=== PATIENT | male | born 1960 | race Caucasian/White ===

== ENCOUNTER → 2022-02-28 | Outpatient (CLI) | payer OTHER ==
[~2022-02-28] MED LIST: AMLO-258 PO; SODI10PO2 PO
[2022-02-28 11:03] LABS: BASOPHILS % (AUTO) 1.4 % (0.0-2.0); EOSINOPHILS % (AUTO) 14.4 % (1.0-6.0); HEMATOCRIT 36.2 % (41-53); HEMOGLOBIN 12.1 g/dL (13.5-17.5); LYMPHOCYTES % (AUTO) 16.8 % (22.0-44.0); MEAN CORPUSCULAR HEMOGLOBIN 26.8 pg (26.0-34.0); MEAN CORPUSCULAR HGB CONC 33.5 G/dL (31.0-37.0); MEAN CORPUSCULAR VOLUME 80 fL (80-100); MONOCYTES # (AUTO) 0.5 K/uL (0.1-1.0); MONOCYTES % (AUTO) 8.7 % (2.0-9.0); NEUTROPHILS # (AUTO) 3.6 K/uL (1.8-7.7); NEUTROPHILS % (AUTO) 58.7 % (40.0-70.0); PLATELET COUNT (AUTO) 348 K/uL (150-450); RED BLOOD CELL COUNT(AUTO) 4.52 MIL/uL (4.50-5.90)
[2022-02-28 11:23] LABS: APPEARANCE,URINE CLEAR (CLEAR); BILIRUBIN,URINE NEGATIVE (NEGATIVE); GLUCOSE, URINE (UA) 300-500 mg/dL (NEGATIVE); KETONES,URINE NEGATIVE (NEGATIVE); LEUKOCYTE ESTERASE ,URINE NEGATIVE (NEGATIVE); NITRATE,URINE NEGATIVE (NEGATIVE); OCCULT BLOOD,URINE SMALL (NEGATIVE); PROTEIN,URINE >600,SEE CONFIRM mg/dL (NEGATIVE); SPECIFIC GRAVITIY, URINE 1.014 (1.003-1.030); UROBILINOGEN,URINE <=1.0 mg/dL (<=1.0)
[2022-02-28 11:31] LABS: SULFOSALICYLIC ACID,URINE 3+ (Negative)
[2022-02-28 11:32] LABS: BACTERIA,URINE None Seen /HPF (None Seen); WBC,URINE None Seen /HPF (0-5)
[2022-02-28 11:49] LABS: ALBUMIN 3.1 g/dL (3.4-5.0); CALCIUM, TOTAL 8.6 mg/dL (8.8-10.5); CREATININE 7.06 mg/dL (0.60-1.30); MAGNESIUM 2.4 mg/dL (1.80-2.40); PHOSPHORUS 7.4 mg/dL (2.5-4.9); POTASSIUM 4.7 mmol/L (3.5-5.1)
[2022-02-28 12:06] LABS: CREATININE,URINE RANDOM 108.4 mg/dL (30.0-125.0)
[2022-02-28 13:41] LABS: PROTEIN,URINE RANDOM 689 mg/dL (0-11.9)
== END | disposition home or self-care (01) ==
LOC: LABMN 10:30
PROVIDERS: ATTEND Internal Medicine Nephrology
DX: N18.5 Chronic kidney disease, stage 5 (principal); E11.22 Type 2 diabetes mellitus with diabetic chronic kidney disease
CPT/HCPCS: 80069; 81001; 81002; 82043; 82570; 83735; 84156; 85025

== ENCOUNTER → 2022-03-27 | Outpatient (CLI) | payer OTHER ==
[2022-03-27 11:10] LABS: BASOPHILS % (AUTO) 1.2 % (0.0-2.0); HEMATOCRIT 32.5 % (41-53); HEMOGLOBIN 10.8 g/dL (13.5-17.5); LYMPHOCYTES # (AUTO) 0.8 K/uL (1.0-4.8); LYMPHOCYTES % (AUTO) 10.7 % (22.0-44.0); MEAN CORPUSCULAR HEMOGLOBIN 26.6 pg (26.0-34.0); MEAN CORPUSCULAR HGB CONC 33.4 G/dL (31.0-37.0); MEAN CORPUSCULAR VOLUME 80 fL (80-100); MONOCYTES # (AUTO) 0.6 K/uL (0.1-1.0); MONOCYTES % (AUTO) 8.6 % (2.0-9.0); NEUTROPHILS # (AUTO) 3.7 K/uL (1.8-7.7); NEUTROPHILS % (AUTO) 49.8 % (40.0-70.0); PLATELET COUNT (AUTO) 325 K/uL (150-450); RED BLOOD CELL COUNT(AUTO) 4.07 MIL/uL (4.50-5.90); RED CELL DISTRIBUTION WIDTH 15.1 % (11.5-14.5)
[2022-03-27 11:11] LABS: APPEARANCE,URINE CLEAR (CLEAR); BILIRUBIN,URINE NEGATIVE (NEGATIVE); GLUCOSE, URINE (UA) 70-100 mg/dL (NEGATIVE); KETONES,URINE NEGATIVE (NEGATIVE); LEUKOCYTE ESTERASE ,URINE NEGATIVE (NEGATIVE); NITRATE,URINE NEGATIVE (NEGATIVE); OCCULT BLOOD,URINE SMALL (NEGATIVE); PROTEIN,URINE 300-600,SEE CONFIRM mg/dL (NEGATIVE); SPECIFIC GRAVITIY, URINE 1.012 (1.003-1.030); UROBILINOGEN,URINE <=1.0 mg/dL (<=1.0)
[2022-03-27 11:20] LABS: EOSINOPHILS % (AUTO) 29.7 % (1.0-6.0)
[2022-03-27 11:24] LABS: BACTERIA,URINE None Seen /HPF (None Seen); RBC,URINE 0-2 /HPF (0-2); SQUAMOUS EPITHELIAL CELL,UR Few /LPF (None Seen); SULFOSALICYLIC ACID,URINE 3+ (Negative); WBC,URINE None Seen /HPF (0-5)
[2022-03-27 11:41] LABS: ALBUMIN 3.3 g/dL (3.4-5.0); CALCIUM, TOTAL 7.8 mg/dL (8.8-10.5); CREATININE 9.77 mg/dL (0.60-1.30); MAGNESIUM 2.9 mg/dL (1.80-2.40); PHOSPHORUS 8.4 mg/dL (2.5-4.9)
== END | disposition home or self-care (01) ==
LOC: LABMN 10:44
PROVIDERS: ATTEND Internal Medicine Nephrology
DX: E11.22 Type 2 diabetes mellitus with diabetic chronic kidney disease (principal); N18.5 Chronic kidney disease, stage 5; E87.5 Hyperkalemia; R80.1 Persistent proteinuria, unspecified
CPT/HCPCS: 80069; 81001; 81002; 82043; 82570; 83735; 85025

== ENCOUNTER 2023-09-29 12:21 | Emergency (ER) | payer OTHER ==
[~2023-09-29] VITALS: Ht 165.1 cm; Wt 59.0 kg
[~2023-09-29 12:21] MED LIST changes: +AMOX1TAB16 PO; +ASPI-1444 PO; +ATOR40TA71 PO; +CLOP75TA60 PO; +DOCU-412 PO; +FOLI0.8T2 PO; +FURO80TA3 PO; +HYDR25TA84 PO; +LINA5TAB PO; +METO25 PO; -SODI10PO2 PO; +SODI5POW3 PO; +SUCR500T PO
[2023-09-29 12:29] VITALS: BP 136/77; PULSE 75; RESP 16; TEMP 98.3
== END 2023-09-29 23:22 | disposition home or self-care (01) ==
LOC: EMS 22:08
DX: S90.932D Unspecified superficial injury of left great toe, subsequent encounter (principal); E11.22 Type 2 diabetes mellitus with diabetic chronic kidney disease; I12.0 Hypertensive chronic kidney disease with stage 5 chronic kidney disease or end stage renal disease; N18.6 End stage renal disease; Z99.2 Dependence on renal dialysis; X58.XXXA Exposure to other specified factors, initial encounter; Y93.89 Activity, other specified; Y92.89 Other specified places as the place of occurrence of the external cause; Y99.8 Other external cause status
CPT/HCPCS: 82962; 99282

== ENCOUNTER 2024-05-02 21:11 | Inpatient (IN) | payer OTHER ==
[~2024-05-02] VITALS: Ht 162.6 cm; Wt 52.0 kg
[~2024-05-02 21:11] MED LIST changes: +AMOX-457 PO; -AMOX1TAB16 PO; -FOLI0.8T2 PO; +FOLI0.8T54 PO
[2024-05-02 22:09] LABS: HEMATOCRIT 31.8 % (41-53); HEMOGLOBIN 10.4 g/dL (13.5-17.5); LYMPHOCYTES # (AUTO) 0.5 K/uL (1.0-4.8); LYMPHOCYTES % (AUTO) 3.4 % (22.0-44.0); MEAN CORPUSCULAR HEMOGLOBIN 30.9 pg (26.0-34.0); MEAN CORPUSCULAR HGB CONC 32.6 G/dL (31.0-37.0); MEAN CORPUSCULAR VOLUME 95 fL (80-100); MONOCYTES # (AUTO) 1.6 K/uL (0.1-1.0); MONOCYTES % (AUTO) 10.7 % (2.0-9.0); NEUTROPHILS # (AUTO) 11.7 K/uL (1.8-7.7); NEUTROPHILS % (AUTO) 76.9 % (40.0-70.0); PLATELET COUNT (AUTO) 269 K/uL (150-450); RED BLOOD CELL COUNT(AUTO) 3.36 MIL/uL (4.50-5.90); RED CELL DISTRIBUTION WIDTH 16.1 % (11.5-14.5); WHITE BLOOD COUNT (AUTO) 15.2 K/uL (4.5-11.0)
[2024-05-02 22:13] LABS: CALCIUM, TOTAL 8.7 mg/dL (8.8-10.5); CREATININE 4.74 mg/dL (0.60-1.30); POTASSIUM 4.7 mmol/L (3.5-5.1)
[2024-05-02 22:20] LABS: ALBUMIN 2.3 g/dL (3.4-5.0); BILIRUBIN,DIRECT 0.2 mg/dL (0.00-0.20); BILIRUBIN,TOTAL 0.5 mg/dL (0.1-1.0)
[2024-05-02 22:21] LABS: TROPONIN I-HIGH SENSITIVITY 17 ng/L (<76)
[2024-05-02 22:38] LABS: MAGNESIUM 2.4 mg/dL (1.80-2.40)
[2024-05-02] MEDS: NITROGLYCERIN 50 MG/D5% WATER 250 ML IV PRN (23:04)
[2024-05-02] MEDS ORDERED: ONDANSETRON HCL 4 MG/2 ML VIAL IVP PRN (23:30)
[2024-05-02] MEDS ORDERED: DEXTROSE 50%-WATER 25 GM/50 ML SYRINGE IVP PRN (23:30)
[2024-05-02] MEDS: AmLODIPine BESYLATE 10 MG TABLET PO SCH (23:44)
[2024-05-02] MEDS: NITROGLYCERIN 2% (1 GM=INCH) OINTMENT PACKET TP SCH (23:45)
[2024-05-02] MEDS: LABETALOL HCL 5 MG/ML 20 ML VIAL IVP ONE (23:47)
[2024-05-02] MEDS: HydrALAZINE HCL 25 MG TABLET PO SCH (23:58)
[2024-05-03] MEDS: HEPARIN SODIUM,PORCINE 5,000 UNITS/ML VIAL SQ SCH (00:04)
[2024-05-03] MEDS: LABETALOL HCL 5 MG/ML 20 ML VIAL IVP ONE (00:25)
[2024-05-03] MEDS: HydrALAZINE HCL 20 MG/ML VIAL IVP PRN (06:06)
[2024-05-03 07:03] LABS: BASOPHILS % (AUTO) 0.9 % (0.0-2.0); EOSINOPHILS % (AUTO) 5.7 % (1.0-6.0); HEMATOCRIT 31.6 % (41-53); HEMOGLOBIN 10.4 g/dL (13.5-17.5); LYMPHOCYTES # (AUTO) 0.8 K/uL (1.0-4.8); LYMPHOCYTES % (AUTO) 6.3 % (22.0-44.0); MEAN CORPUSCULAR HEMOGLOBIN 31.6 pg (26.0-34.0); MEAN CORPUSCULAR HGB CONC 33.1 G/dL (31.0-37.0); MEAN CORPUSCULAR VOLUME 95 fL (80-100); MONOCYTES # (AUTO) 1.6 K/uL (0.1-1.0); MONOCYTES % (AUTO) 12.9 % (2.0-9.0); NEUTROPHILS # (AUTO) 9.4 K/uL (1.8-7.7); NEUTROPHILS % (AUTO) 74.2 % (40.0-70.0); PLATELET COUNT (AUTO) 271 K/uL (150-450); RED BLOOD CELL COUNT(AUTO) 3.31 MIL/uL (4.50-5.90); RED CELL DISTRIBUTION WIDTH 16.4 % (11.5-14.5); WHITE BLOOD COUNT (AUTO) 12.7 K/uL (4.5-11.0)
[2024-05-03 07:05] LABS: GLUCOMETER DEV NAME(LOC) ER.7; GLUCOSE,POINT OF CARE 120 MG/DL (70-110)
[2024-05-03 07:17] LABS: CALCIUM, TOTAL 8.6 mg/dL (8.8-10.5); CREATININE 5.41 mg/dL (0.60-1.30); MAGNESIUM 2.5 mg/dL (1.80-2.40); POTASSIUM 4.4 mmol/L (3.5-5.1)
[2024-05-03] MEDS: ATORVASTATIN CALCIUM 40 MG TABLET PO SCH (07:33)
[2024-05-03] MEDS: AMOX TR/POT CLAV 875 MG/125 MG TABLET PO SCH (07:33)
[2024-05-03] MEDS: FOLIC ACID/VIT B COMPLEX AND C TABLET PO SCH (07:34)
[2024-05-03] MEDS: CLOPIDOGREL BISULFATE 75 MG TABLET PO SCH (07:34)
[2024-05-03] MEDS ORDERED: [UNRECOGNIZED DRUG - OTHER] PO SCH (08:00)
[2024-05-03] MEDS: METOPROLOL TARTRATE 25 MG TABLET PO SCH (09:19)
[2024-05-03] MEDS: FUROSEMIDE 80 MG TABLET PO SCH (09:20)
[2024-05-03] MEDS: ASPIRIN 81 MG DR TABLET PO SCH (09:20)
[2024-05-03] MEDS ORDERED: FOLI1TAB85 PO (11:20)
[2024-05-03] MEDS ORDERED: HYDR50TA36 PO (11:20)
[2024-05-03] MEDS ORDERED: SEVE800T38 PO (11:20)
[2024-05-03] MEDS: LABETALOL HCL 100 MG TABLET PO SCH (12:08)
[2024-05-03] MEDS ORDERED: LABE200T58 PO (15:02)
[2024-05-03 16:00] VITALS: BP 159/89; PULSE 97; RESP 18; TEMP 100.4; O2SAT 99
[2024-05-03] MEDS: HydrALAZINE HCL 50 MG TABLET PO SCH (17:18)
[2024-05-03] MEDS: INSULIN LISPRO 100 UNITS/ML SQ PRN (17:52)
[2024-05-03 20:00] VITALS: BP 163/92; PULSE 99; RESP 19; TEMP 101; O2SAT 99
[2024-05-03] MEDS: ACETAMINOPHEN 325 MG TABLET PO PRN (20:20)
[2024-05-03] MEDS: DOCUSATE SODIUM 250 MG CAPSULE PO SCH (20:21)
[2024-05-03 21:25] LABS: GLUCOMETER DEV NAME(LOC) 5S.1C; GLUCOSE,POINT OF CARE 178 MG/DL (70-110)
[2024-05-03 21:25] LABS: GLUCOMETER DEV NAME(LOC) 5S.1C; GLUCOSE,POINT OF CARE 154 MG/DL (70-110)
[2024-05-04] VITALS (13 sets, daily range): BP systolic 151–194; BP diastolic 54–98; PULSE 75–85; RESP 16–20; TEMP 96.9–98.9; O2SAT 97–98
[2024-05-04] MEDS: FOLIC ACID/VIT B COMPLEX AND C TABLET PO SCH (09:00)
[2024-05-04] MEDS: SODIUM ZIRCONIUM CYCLOSILICATE 5 GM POWDER PACKET PO SCH (09:31)
[2024-05-04 09:51] LABS: GLUCOMETER DEV NAME(LOC) 5S.2D; GLUCOSE,POINT OF CARE 94 MG/DL (70-110)
[2024-05-04] MEDS: LABETALOL HCL 200 MG TABLET PO ONE (13:59)
[2024-05-04] MEDS: PIPERACILLIN SODIUM/TAZOBACTAM 2.25 GM in DEXTROSE 5%-WATER 50 ML IV SCH (15:40)
[2024-05-04] MEDS: LABETALOL HCL 100 MG TABLET PO SCH (20:17)
[2024-05-04] MEDS: HYDROmorphone HCL 2 MG/ML SYRINGE IVP PRN (20:21)
[2024-05-04 22:01] LABS: GLUCOMETER DEV NAME(LOC) 5S.2D; GLUCOSE,POINT OF CARE 182 MG/DL (70-110)
[2024-05-04 22:01] LABS: GLUCOMETER DEV NAME(LOC) 5S.2D; GLUCOSE,POINT OF CARE 182 MG/DL (70-110)
[2024-05-04 22:01] LABS: GLUCOMETER DEV NAME(LOC) 5S.2D; GLUCOSE,POINT OF CARE 186 MG/DL (70-110)
[2024-05-05 00:10] VITALS: BP 141/65; PULSE 74; RESP 19; TEMP 98; O2SAT 99
[2024-05-05 03:58] VITALS: BP 133/63; PULSE 73; RESP 19; TEMP 98.3; O2SAT 98
[2024-05-05 05:51] LABS: GLUCOMETER DEV NAME(LOC) 5S.1C; GLUCOSE,POINT OF CARE 141 MG/DL (70-110)
[2024-05-05 07:59] VITALS: BP 150/65; PULSE 72; RESP 18; TEMP 98; O2SAT 99
[2024-05-05 11:11] VITALS: BP 154/72; PULSE 82; RESP 18; TEMP 98.1; O2SAT 99
[2024-05-05 13:16] LABS: GLUCOMETER DEV NAME(LOC) 5S.1C; GLUCOSE,POINT OF CARE 252 MG/DL (70-110)
[2024-05-05 15:23] VITALS: BP 150/54; PULSE 82; RESP 19; TEMP 98.4; O2SAT 98
[2024-05-05] MEDS ORDERED: LABE100T51 PO (15:30)
[2024-05-05] MEDS ORDERED: NITR1OIN TP (15:30)
[2024-05-05] MEDS ORDERED: HYDR50TA37 PO (15:30)
[2024-05-06 00:35] LABS: GLUCOMETER DEV NAME(LOC) 5S.2D; GLUCOSE,POINT OF CARE 133 MG/DL (70-110)
== END 2024-05-05 19:00 | DRG 199 ==
LOC: EMS 21:12 → EDH 23:32 → 5S 05-03 15:18
PROVIDERS: ADMIT Internal Medicine; ATTEND Internal Medicine
PROC: 5A1D70Z Performance of Urinary Filtration, Intermittent, Less than 6 Hours Per Day (ICD-10-PCS; principal; 2024-05-04)
DX: I16.1 Hypertensive emergency (principal); E11.52 Type 2 diabetes mellitus with diabetic peripheral angiopathy with gangrene; N18.6 End stage renal disease; R65.10 Systemic inflammatory response syndrome (SIRS) of non-infectious origin without acute organ dysfunction; E11.22 Type 2 diabetes mellitus with diabetic chronic kidney disease; I12.0 Hypertensive chronic kidney disease with stage 5 chronic kidney disease or end stage renal disease; E78.5 Hyperlipidemia, unspecified; Z79.84 Long term (current) use of oral hypoglycemic drugs; Z79.899 Other long term (current) drug therapy; Z98.61 Coronary angioplasty status; Z99.2 Dependence on renal dialysis
CPT/HCPCS: 71045; 80048; 80076; 82962; 83605; 83735; 83880; 84484; 85025; 87040; 87340; 90935; 93005; 93926; 99291; G0480; J0360; J1170; J1644; J2543; J3490; J7060; 36415-L1; 36415-TC